=== PATIENT | female | born 1960 | race Caucasian/White ===

== ENCOUNTER 2017-10-27 08:42 | Inpatient (IN) | payer OTHER ==
[2017-10-27] MEDS: DILTIAZEM 25 MG INJ IV ×2 (10:40→12:39)
[2017-10-27 10:53] LABS: ADD MAN DIFF? NO
[2017-10-27 10:57] LABS: BASOPHILS % 0.3 % (0.0-2.0); EOSINOPHILS # 0.1 10^3/ul (0.0-0.5); EOSINOPHILS % 1.3 % (0.0-7.0); HEMATOCRIT 46.8 % (37.0-47.0); HEMOGLOBIN 15.3 g/dl (12.0-16.0); LYMPHOCYTES # 2.4 10^3/ul (0.8-2.9); MEAN CORPUSCULAR HEMOGLOBIN 27.1 pg (29.0-33.0); MEAN CORPUSCULAR HGB CONC 32.7 g/dl (32.0-37.0); MEAN PLATELET VOLUME 10.3 fl (7.4-10.4); MONOCYTE # 0.5 10^3/ul (0.3-0.9); MONOCYTES % 7.8 % (0.0-11.0); NEUTROPHIL # 3.2 10^3/ul (1.6-7.5); NEUTROPHILS % 51.4 % (39.0-77.0); PLATELET COUNT 324 10^3/UL (140-415); RED BLOOD COUNT 5.64 10^6/ul (4.20-5.40); RED CELL DISTRIBUTION WIDTH 13.1 % (11.5-14.5)
[2017-10-27 10:57] LABS: WHITE BLOOD COUNT 6.1 10^3/ul (4.8-10.8)
[2017-10-27 11:37] LABS: CREATINE KINASE 204 IU/L (23-200)
[2017-10-27 11:39] LABS: ALANINE AMINOTRANSFERASE 50 IU/L (13-69); ALBUMIN 4.7 g/dl (3.3-4.9); ALBUMIN/GLOBULIN RATIO 1.27; ALKALINE PHOSPHATASE 104 IU/L (42-121); ANION GAP 18 (8-16); ASPARTATE AMINO TRANSFERASE 50 IU/L (15-46); BILIRUBIN,INDIRECT 0.3 mg/dl (0-1.1); BILIRUBIN,TOTAL 0.3 mg/dl (0.2-1.3); BLOOD UREA NITROGEN 15 mg/dl (7-20); CALCIUM 10.2 mg/dl (8.4-10.2); CARBON DIOXIDE 24 mmol/L (21-31); CHLORIDE 108 mmol/L (97-110); GLUCOSE 120 mg/dl (70-220); POTASSIUM 4.2 mmol/L (3.5-5.1); SODIUM 146 mmol/L (135-144); TOTAL PROTEIN 8.4 g/dl (6.1-8.1)
[2017-10-27 11:51] LABS: CK INDEX 0.5; CK-MB 1.06 ng/ml (0.0-2.4); TROPONIN-I 0.034 ng/ml (0.00-0.12)
[2017-10-27] MEDS ORDERED: ONDANSETRON 4 MG INJ IV ×2 (13:00→14:30)
[2017-10-27] MEDS: ASPIRIN 325 MG TAB PO (13:53)
[2017-10-27 13:54] LABS: CHOLESTEROL 224 mg/dl (100-200)
[2017-10-27 13:54] LABS: CHOL/HDL RATIO 3.5 RATIO; HDL CHOLESTEROL 63 mg/dl (37-92); LDL CHOLESTEROL,CALCULATED 146 mg/dl; TRIGLYCERIDES 75 mg/dl (0-149)
[2017-10-27 14:12] LABS: FREE T4 (FREE THYROXINE) 1.03 ng/dl (0.64-1.79)
[2017-10-27 14:26] LABS: TRIIODOTHYRONINE 1.26 ng/ml (0.97-1.69)
[2017-10-27] MEDS ORDERED: ACETAMINOPHEN 325 MG TAB PO (14:30)
[2017-10-27] MEDS: SOD CHLORIDE 0.9% 1,000 ML IV (15:59)
[2017-10-27] MEDS: ACETAMINOPHEN 325 MG TAB PO (18:57)
[2017-10-27] MEDS: PROPRANOLOL 10 MG TAB PO (21:07)
[2017-10-27 23:08] LABS: CREATINE KINASE 154 IU/L (23-200)
[2017-10-27 23:19] LABS: CK INDEX 0.9; CK-MB 1.41 ng/ml (0.0-2.4); TROPONIN-I 0.107 ng/ml (0.00-0.12)
[2017-10-28 06:59] LABS: ALANINE AMINOTRANSFERASE 48 IU/L (13-69); ALBUMIN/GLOBULIN RATIO 1.29; ALKALINE PHOSPHATASE 91 IU/L (42-121); ANION GAP 15 (8-16); ASPARTATE AMINO TRANSFERASE 40 IU/L (15-46); BILIRUBIN,INDIRECT 0.4 mg/dl (0-1.1); BILIRUBIN,TOTAL 0.4 mg/dl (0.2-1.3); BLOOD UREA NITROGEN 13 mg/dl (7-20); CARBON DIOXIDE 23 mmol/L (21-31); CHLORIDE 111 mmol/L (97-110); CREATININE 0.59 mg/dl (0.44-1.00); GLUCOSE 107 mg/dl (70-220); POTASSIUM 3.8 mmol/L (3.5-5.1); SODIUM 145 mmol/L (135-144); TOTAL PROTEIN 7.1 g/dl (6.1-8.1)
[2017-10-28] MEDS: PROPRANOLOL 10 MG TAB PO ×3 (08:07→20:55)
[2017-10-28] MEDS: ASPIRIN (EC) 81 MG TAB PO (08:07)
[2017-10-28] MEDS: NITROGLYCERIN (SL) 0.4 MG TAB SL ×3 (09:14→20:19)
[2017-10-28] MEDS ORDERED: METOPROLOL 5 MG INJ IV (13:00)
[2017-10-29 05:03] LABS: ADD MAN DIFF? NO
[2017-10-29 05:07] LABS: WHITE BLOOD COUNT 4.4 10^3/ul (4.8-10.8)
[2017-10-29 05:07] LABS: BASOPHILS % 0.2 % (0.0-2.0); EOSINOPHILS # 0.2 10^3/ul (0.0-0.5); EOSINOPHILS % 3.4 % (0.0-7.0); HEMATOCRIT 40.9 % (37.0-47.0); LYMPHOCYTES # 2.2 10^3/ul (0.8-2.9); LYMPHOCYTES % 50.1 % (15.0-51.0); MEAN CORPUSCULAR HGB CONC 31.8 g/dl (32.0-37.0); MEAN CORPUSCULAR VOLUME 84.9 fl (82.0-101.0); MEAN PLATELET VOLUME 10.4 fl (7.4-10.4); MONOCYTE # 0.5 10^3/ul (0.3-0.9); MONOCYTES % 10.4 % (0.0-11.0); NEUTROPHIL # 1.6 10^3/ul (1.6-7.5); NEUTROPHILS % 35.9 % (39.0-77.0); PLATELET COUNT 247 10^3/UL (140-415); RED BLOOD COUNT 4.82 10^6/ul (4.20-5.40); RED CELL DISTRIBUTION WIDTH 13.4 % (11.5-14.5)
[2017-10-29 05:40] LABS: ANION GAP 14 (8-16); BLOOD UREA NITROGEN 24 mg/dl (7-20); CALCIUM 9.1 mg/dl (8.4-10.2); CARBON DIOXIDE 23 mmol/L (21-31); CHLORIDE 111 mmol/L (97-110); GLUCOSE 116 mg/dl (70-220); POTASSIUM 4.1 mmol/L (3.5-5.1); SODIUM 144 mmol/L (135-144)
[2017-10-29] MEDS: REGADENOSON 0.4 MG/5 ML SYG (11:04)
[2017-10-29] MEDS: ASPIRIN (EC) 81 MG TAB PO (11:35)
[2017-10-29] MEDS: PROPRANOLOL 10 MG TAB PO ×3 (11:36→22:56)
[2017-10-29] MEDS: NITROGLYCERIN (SL) 0.4 MG TAB SL (11:39)
[2017-10-29] MEDS: PROPRANOLOL 20 MG TAB PO (22:07)
[2017-10-30 05:06] LABS: ADD MAN DIFF? NO
[2017-10-30 05:07] LABS: WHITE BLOOD COUNT 4.4 10^3/ul (4.8-10.8)
[2017-10-30 05:07] LABS: BASOPHILS % 0.2 % (0.0-2.0); EOSINOPHILS # 0.1 10^3/ul (0.0-0.5); HEMATOCRIT 42.9 % (37.0-47.0); HEMOGLOBIN 13.6 g/dl (12.0-16.0); LYMPHOCYTES # 2.1 10^3/ul (0.8-2.9); LYMPHOCYTES % 47.9 % (15.0-51.0); MEAN CORPUSCULAR HEMOGLOBIN 26.8 pg (29.0-33.0); MEAN CORPUSCULAR HGB CONC 31.7 g/dl (32.0-37.0); MEAN CORPUSCULAR VOLUME 84.4 fl (82.0-101.0); MEAN PLATELET VOLUME 10.4 fl (7.4-10.4); MONOCYTE # 0.3 10^3/ul (0.3-0.9); MONOCYTES % 6.8 % (0.0-11.0); NEUTROPHIL # 1.8 10^3/ul (1.6-7.5); NEUTROPHILS % 41.9 % (39.0-77.0); PLATELET COUNT 261 10^3/UL (140-415); RED BLOOD COUNT 5.08 10^6/ul (4.20-5.40); RED CELL DISTRIBUTION WIDTH 13.4 % (11.5-14.5)
[2017-10-30 05:42] LABS: ANION GAP 14 (8-16); BLOOD UREA NITROGEN 20 mg/dl (7-20); CALCIUM 9.4 mg/dl (8.4-10.2); CARBON DIOXIDE 26 mmol/L (21-31); CHLORIDE 109 mmol/L (97-110); CREATININE 0.56 mg/dl (0.44-1.00); GLUCOSE 112 mg/dl (70-220); POTASSIUM 4.3 mmol/L (3.5-5.1); SODIUM 145 mmol/L (135-144)
[2017-10-30] MEDS: PANTOPRAZOLE (EC) 40 MG TAB PO (06:01)
[2017-10-30] MEDS: ASPIRIN (EC) 81 MG TAB PO (08:31)
[2017-10-30] MEDS: PROPRANOLOL 10 MG TAB PO ×2 (08:32→12:14)
[2017-10-30] MEDS ORDERED: BENAZEPRIL 10 MG TAB PO (21:00)
[2017-10-30] MEDS ORDERED: PROPRANOLOL 20 MG TAB PO (21:00)
== END 2017-10-30 19:15 | disposition home or self-care (01) | DRG 310 ==
LOC: FTE 08:42 → MS3 12:41
PROVIDERS: Internal Medicine
DX: I47.1 Supraventricular tachycardia (principal); I10 Essential (primary) hypertension; Z72.0 Tobacco use; I48.91 Unspecified atrial fibrillation; R07.9 Chest pain, unspecified; F41.9 Anxiety disorder, unspecified; E78.5 Hyperlipidemia, unspecified; Z79.82 Long term (current) use of aspirin; F17.200 Nicotine dependence, unspecified, uncomplicated; F32.9 Major depressive disorder, single episode, unspecified; R00.2 Palpitations
CPT/HCPCS: 36415; 71045; 78452; 80048; 80053; 80061; 82550; 82553; 83735; 84439; 84443; 84480; 84484; 85025; 93005; 93017; 93306; 96374; 96375; 99291-25